=== PATIENT | female | born 1985 | race Caucasian/White ===

== ENCOUNTER → 2020-08-14 | Outpatient (CLI) | payer OTHER ==
[~2020-08-14] MED LIST: PREN1TAB62 PO
== END | disposition home or self-care (01) ==
LOC: STAR 13:47
PROVIDERS: ATTEND Obstetrics & Gynecology
DX: Z20.828 Contact with and (suspected) exposure to other viral communicable diseases (principal)
CPT/HCPCS: 36415; 87635

== ENCOUNTER 2020-08-19 05:29 | Inpatient (IN) | payer OTHER ==
[~2020-08-19] VITALS: Ht 167.6 cm; Wt 100.0 kg
[2020-08-19 05:39] VITALS: BP 119/68
[2020-08-19] MEDS ORDERED: PREN1TAB62 PO (05:41)
[2020-08-19] MEDS ORDERED: PLEASE ENTER ALLERGIES MC SCH (06:00)
[2020-08-19] MEDS ORDERED: LACTATED RINGERS 1,000 ML IVBOLUS ONE (06:00)
[2020-08-19] MEDS ORDERED: SODIUM CITRATE/CITRIC ACID 30 ML UDC PO ONE (06:00)
[2020-08-19] MEDS ORDERED: LACTATED RINGERS 1,000 ML IV SCH (06:00)
[2020-08-19] MEDS ORDERED: METOCLOPRAMIDE 5 MG/ML, 2ML IV ONE (06:00)
[2020-08-19] MEDS ORDERED: NEWBORN KIT ONE (06:03)
[2020-08-19] MEDS ORDERED: OXYTOCIN 30U/ 0.9% NaCL 500ML 500 ML ONE (06:03)
[2020-08-19] MEDS ORDERED: METOCLOPRAMIDE 5 MG/ML, 2ML ONE (06:03)
[2020-08-19 06:13] LABS: BASOPHILS % (AUTO) 0 % (0-1); EOSINOPHILS % (AUTO) 1 % (1-7); LYMPHOCYTES % (AUTO) 31 % (22-44); MEAN CORPUSCULAR HEMOGLOBIN 29.2 pg (27.0-34.8); MONOCYTES % (AUTO) 7 % (2-9); NEUTROPHILS % (AUTO) 61 % (42-75); PLATELET COUNT 157 x10^3/uL (130-400); RED BLOOD COUNT 4.46 x10^6/uL (3.82-5.3); RED CELL DISTRIBUTION WIDTH 14.1 % (9.6-15.2)
[2020-08-19 06:17] LABS: MD NO
[2020-08-19] MEDS ORDERED: morphine SULFATE/PF 0.5 MG/ML, 10ML ONE (07:09)
[2020-08-19] MEDS ORDERED: EPINEPHRINE 1 MG/ML, 1ML ONE (07:13)
[2020-08-19] MEDS ORDERED: CEFAZOLIN 1,000 MG ONE (07:19)
[2020-08-19] MEDS ORDERED: ONDANSETRON 2MG/ML, 2ML ONE (07:19)
[2020-08-19] MEDS ORDERED: PHENYLEPHRINE 10 MG/ML ONE (07:19)
[2020-08-19] MEDS ORDERED: WATER-INJECTION,STERILE 10 ML IV ONE (07:19)
[2020-08-19] MEDS ORDERED: OXYTOCIN 10 UNITS/ML, 1ML ONE (07:19)
[2020-08-19] MEDS ORDERED: EPHEDRINE 50 MG/ML, 1ML ONE (07:19)
[2020-08-19] MEDS ORDERED: DIPHENHYDRAMINE 50 MG/ML, 1ML ONE (08:12)
[2020-08-19] MEDS ORDERED: TRANEXAMIC ACID 100 MG/ML, 10ML IV ONE (09:00)
[2020-08-19] MEDS: PRENATAL VIT/IRON/FA 1 EACH TABLET PO SCH (09:00)
[2020-08-19] MEDS ORDERED: KETOROLAC 30 MG/1 ML ONE (09:00)
[2020-08-19] MEDS ORDERED: morphine SULFATE 10 MG/ML, 1ML IM PRN (09:00)
[2020-08-19] MEDS ORDERED: OXYcodone/APAP 5/325MG TABLET PO PRN (09:00)
[2020-08-19] MEDS ORDERED: METHYLERGONOVINE 0.2 MG/ML IM PRN (09:00)
[2020-08-19] MEDS ORDERED: MISOPROSTOL 200 MCG TABLET PR PRN ×2 (09:00)
[2020-08-19] MEDS ORDERED: RHOGAM FROM BLOOD BANK 1 NOTE EA IM/IV ONE (09:00)
[2020-08-19] MEDS ORDERED: METOCLOPRAMIDE 5 MG/ML, 2ML IV PRN (09:00)
[2020-08-19] MEDS ORDERED: IBUPROFEN 600 MG TABLET PO PRN (09:00)
[2020-08-19] MEDS: KETOROLAC 30 MG/1 ML IV SCH ×3 (09:01→20:30)
[2020-08-19] MEDS: OXYTOCIN 30U/ 0.9% NaCL 500ML 500 ML IV SCH ×2 (09:42→19:00)
[2020-08-19] MEDS: LACTATED RINGERS 1,000 ML IV SCH ×2 (09:42→17:00)
[2020-08-19] MEDS ORDERED: OXYcodone/APAP 5/325MG TABLET ONE (10:10)
[2020-08-19] MEDS: OXYcodone/APAP 5/325MG TABLET PO PRN ×3 (10:13→19:21)
[2020-08-19 10:45] VITALS: BP 120/73
[2020-08-19] MEDS: ONDANSETRON 2MG/ML, 2ML IV PRN ×2 (13:38→20:30)
[2020-08-19] MEDS: SIMETHICONE 80 MG CHEW TAB PO PRN ×2 (13:38→19:21)
[2020-08-19] MEDS ORDERED: KETOROLAC 30 MG/1 ML IVPush SCH (15:00)
[2020-08-19 16:00] VITALS: BP 112/74
[2020-08-19 17:23] LABS: BASOPHILS % (AUTO) 0 % (0-1); EOSINOPHILS % (AUTO) 0 % (1-7); LYMPHOCYTES % (AUTO) 21 % (22-44); MD NO; MEAN CORPUSCULAR HEMOGLOBIN 29.6 pg (27.0-34.8); MEAN PLATELET VOLUME 9.8 fL (7.4-10.4); MONOCYTES % (AUTO) 7 % (2-9); NEUTROPHILS % (AUTO) 72 % (42-75); PLATELET COUNT 137 x10^3/uL (130-400); RED BLOOD COUNT 4.15 x10^6/uL (3.82-5.3); RED CELL DISTRIBUTION WIDTH 14.1 % (9.6-15.2)
[2020-08-19 18:07] VITALS: BP 114/74
[2020-08-19] MEDS: DOCUSATE 100 MG CAPSULE PO PRN (19:21)
[2020-08-19 19:35] VITALS: BP 111/71
[2020-08-20 00:40] VITALS: BP 103/68
[2020-08-20] MEDS: OXYcodone/APAP 5/325MG TABLET PO PRN ×5 (00:48→21:58)
[2020-08-20] MEDS: LACTATED RINGERS 1,000 ML IV SCH ×3 (01:00→17:00)
[2020-08-20] MEDS: KETOROLAC 30 MG/1 ML IV SCH ×4 (02:34→20:52)
[2020-08-20] MEDS: SIMETHICONE 80 MG CHEW TAB PO PRN ×4 (02:34→20:52)
[2020-08-20 04:10] VITALS: BP 100/65
[2020-08-20] MEDS: OXYTOCIN 30U/ 0.9% NaCL 500ML 500 ML IV SCH ×2 (05:00→15:00)
[2020-08-20 08:00] VITALS: BP 110/72
[2020-08-20] MEDS: PRENATAL VIT/IRON/FA 1 EACH TABLET PO SCH (08:44)
[2020-08-20] MEDS: DOCUSATE 100 MG CAPSULE PO PRN ×2 (08:44→20:52)
[2020-08-20 13:00] VITALS: BP 102/72
[2020-08-20 19:15] VITALS: BP 107/71
[2020-08-21] MEDS: LACTATED RINGERS 1,000 ML IV SCH (01:00)
[2020-08-21] MEDS: OXYTOCIN 30U/ 0.9% NaCL 500ML 500 ML IV SCH (01:00)
[2020-08-21] MEDS: KETOROLAC 30 MG/1 ML IV SCH (02:07)
[2020-08-21] MEDS: OXYcodone/APAP 5/325MG TABLET PO PRN ×3 (02:07→13:39)
[2020-08-21 07:00] VITALS: BP 130/81
[2020-08-21] MEDS: PRENATAL VIT/IRON/FA 1 EACH TABLET PO SCH (07:39)
[2020-08-21] MEDS: DOCUSATE 100 MG CAPSULE PO PRN (07:39)
[2020-08-21] MEDS: IBUPROFEN 600 MG TABLET PO PRN ×2 (07:39→13:39)
[2020-08-21] MEDS: SIMETHICONE 80 MG CHEW TAB PO PRN (13:42)
[2020-08-21] MEDS ORDERED: IBUP-1222 PO (16:38)
[2020-08-21] MEDS ORDERED: DOCU-131 PO (16:38)
[2020-08-21] MEDS ORDERED: OXYC-302 PO (16:38)
[2020-08-21] MEDS ORDERED: SIME80TA16 PO (16:40)
== END 2020-08-21 17:16 | disposition home or self-care (01) | DRG 785 ==
LOC: LDIP 05:29 → 2NW 10:33
PROVIDERS: ADMIT Obstetrics & Gynecology; ATTEND Obstetrics & Gynecology
PROC: 0UB70ZZ Excision of Bilateral Fallopian Tubes, Open Approach (ICD-10-PCS; principal; 2020-08-19)
PROC: 10D00Z1 Extraction of Products of Conception, Low, Open Approach (ICD-10-PCS; 2020-08-19)
DX: O99.52 Diseases of the respiratory system complicating childbirth (principal); O34.211 Maternal care for low transverse scar from previous cesarean delivery; J45.909 Unspecified asthma, uncomplicated; Z3A.39 39 weeks gestation of pregnancy; Z37.0 Single live birth; Z30.2 Encounter for sterilization
CPT/HCPCS: 36415; 85025; 86592; 86850; 86900; 88302; G0378; J0171; J0690; J1885; J2274; J2405; J1200; J2370; J2590; J2765; J7120